=== PATIENT | male | born 1985 | race Two or more races ===

== ENCOUNTER 2023-10-10 07:53 | Emergency (ER) | payer MEDICAID, OTHER ==
[~2023-10-10] VITALS: Ht 177.8 cm; Wt 79.7 kg
[2023-10-10 09:11] VITALS: BP 119/79; PULSE 82; RESP 16; TEMP 98.9; O2SAT 100
[2023-10-10] MEDS ORDERED: METOCLOPRAMIDE HCL 5MG/ml INJ 2ml VIAL IM ONE (09:30)
[2023-10-10] MEDS ORDERED: KETOROLAC TROMETH 30 MG/ML 1ML VIAL IM ONE (09:30)
[2023-10-10] MEDS ORDERED: METO5TAB67 PO (11:56)
[2023-10-10] MEDS ORDERED: SUMA100T15 PO (11:56)
== END 2023-10-10 12:09 | disposition home or self-care (01) ==
LOC: ER 07:53
DX: R51.9 Headache, unspecified (principal)
CPT/HCPCS: 70450; 96372; 99285; J1885; J2765